=== PATIENT | female | born 1980 | race Caucasian/White ===

== ENCOUNTER 2020-12-04 12:56 | Outpatient (CLI) | payer BC, SELFPAY ==
[2020-12-07 04:39] LABS: FSH 9.7 mIU/mL (***); LH 12.8 mIU/mL (***); Progesterone 0.4 ng/mL (***)
[2020-12-09 07:18] LABS: Testosterone Total 44 ng/dL (2-45)
== END 2020-12-04 12:57 | disposition home or self-care (01) ==
LOC: ANHBWCLAB 12:58
PROVIDERS: PCP Family Medicine; Visit Provider Obstetrics & Gynecology
DX: L68.9 Hypertrichosis, unspecified (principal)
CPT/HCPCS: 36415; 83001; 83002; 84144; 84403

== ENCOUNTER 2022-08-13 08:13 | Outpatient (CLI) | payer BC, SELFPAY ==
--- NOTE | 2022-09-03 15:28 | WPDSLEEPSTUD ---
Sleep Study Date of Study: 08/13/22 Ordering Provider: MARQUEZ Morrow Interpreting Physician: Bindu Valentino DO Sleep Study Type: Split Polysomnogram Height: 1.63 m Weight: 102.058 kg Body Mass Index: 38.6 Neck Circumference (inches): 16 [place]: 7 Reason for Sleep Study Unrefreshing sleep, nocturnal gasping Sleep History The patient is a 42 year old female with anxiety and seasonal allergies that had sleep study ordered pulmonary group for evaluation sleep apnea. The patient works as an attorney at law. The patient rarely awakens from sleep short of breath. She rarely awakens at night with heartburn, belching or cough. She constantly snores loudly enough that others complain. She frequently has trouble sleeping when she has a cold. She occasionally wakes up gasping for air throughout the night. She rarely has breathing problems at night observed by herself or others. She denies sweating excessively at night. She occasionally has heart palpitations or irregular heartbeats during the night. She occasionally falls asleep during the day but never while driving. She denies sleep paralysis, cataplexy and hypnagogic / hypnopompic hallucinations. She rarely has trouble at school or work due to sleepiness. She denies feeling afraid of going to sleep. She denies having nightmares. She rarely remembers her dreams. She occasionally has thoughts racing through her mind. She rarely feels sad or depressed. She occasionally has anxiety. She frequently has muscular tension. She rarely notices parts of her body jerk. She rarely kicks during the night. She denies having crawling and aching feelings in her legs and denies having leg pain during the night. She occasionally grinds her teeth during sleep but rarely awakens with jaw pain in the morning. She is rarely bothered by pain during the day and never awakened by pain during the night. She rarely wakes up feeling stiff in the morning. She rarely wakes up with sore or achy muscles. She rarely wakes up with pain in the neck, spine or other joints. She goes to bed at 10:30 p.m. on weekdays and at midnight on the weekends. It takes her 10-25 minutes to fall asleep. She wakes up 2-3 times throughout the night to use the restroom and adjust. She is able to fall back asleep within 5 minutes. She wakes up at 6:00 a.m. on weekdays and at 7:30 a.m. on the weekends. She typically gets 5-7 hours of sleep per night. She will stay in bed for 30 minutes after waking up in the morning. She currently lives with her and 2 children. She does not consume any caffeinated beverages within 2 hours of bedtime. She does not engage in physical exercise before bedtime. She will read and watch television before falling asleep. She will occasionally take naps in the afternoon or the evening and they are refreshing. She consumes 4-5 caffeinated beverages per day. She has 1-2 alcoholic beverages per month. She denies tobacco and recreational drug use. [facility] Past Medical History Medical History Generalized anxiety disorder Herpes zoster High cholesterol Mixed hyperlipidemia Prehypertension Radiculopathy, lumbar region Specimen satisfactory for evaluation but limited by absence of endocervical or transformation zone component from patient with cervix Surgical History Surgical History H/O LEEP Previous section x 2 Family History Family History Father Family history of migraine headaches Hypertension Social History Social History Smoking status: Never smoker Second hand tobacco smoke exposure: No Alcohol intake: current Lack of Transportation: No Lack of Food: Sometimes True Current Housing: I Have Housing Concerned About Future Hous
[2022-09-03 15:53] VITALS: BMI 38.6
--- NOTE | 2022-09-05 11:00 | WPDSLEEPSTUD ---
Sleep Study Ordering Provider: Cynthia Carbajal PAC Interpreting Physician: Marcie Stephenson MD [facility] Past Medical History Medical History Generalized anxiety disorder Herpes zoster High cholesterol Mixed hyperlipidemia Prehypertension Radiculopathy, lumbar region Specimen satisfactory for evaluation but limited by absence of endocervical or transformation zone component from patient with cervix Surgical History Surgical History H/O LEEP Previous section x 2 Family History Family History Father Family history of migraine headaches Hypertension Social History Social History Smoking status: Never smoker Second hand tobacco smoke exposure: No Alcohol intake: current Lack of Transportation: No Lack of Food: Sometimes True Current Housing: I Have Housing Concerned About Future Housing: No Difficulty Paying Gas/Electric Bills: No Difficulty Paying for Meds: No Currently Unemployed: No Education: Master's Degree or Higher Difficulty w/ Childcare or Family Care: No Medications Home Medications Medication Instructions Recorded Confirmed Type metoprolol succinate 25 mg See Rx Instructions .Route 07/11/21 08/26/22 Rx tablet,extended release 24 hr .COMPLEX #90 tabs escitalopram oxalate 20 mg tablet 20 mg PO DAILY #90 tabs 08/07/21 08/26/22 Rx (Lexapro) cetirizine 10 mg tablet (Zyrtec) 10 mg PO DAILY PRN 09/17/21 08/26/22 History alprazolam 0.25 mg tablet (Xanax) 0.25 mg PO TID PRN anxiety #30 tabs 02/20/22 08/26/22 Rx bupropion HCl 300 mg 24 hr tablet, 300 mg PO QAM #90 tabs 08/27/22 Rx extended release (Wellbutrin XL) CPAP #1 ea 09/05/22 Rx
[2022-09-05 11:17] VITALS: BMI 38.6
== END 2022-08-14 07:24 | disposition home or self-care (01) ==
LOC: ANHCSM 08:13
PROVIDERS: PCP Family Medicine; Visit Provider Physician Assistant
DX: G47.33 Obstructive sleep apnea (adult) (pediatric) (principal); E78.5 Hyperlipidemia, unspecified
CPT/HCPCS: 95811

== ENCOUNTER 2023-10-24 00:24 | Day surgery (SDC) | payer BC, SELFPAY ==
[2023-10-01 09:49] VITALS: BMI 36.9
[2023-10-24 07:48] VITALS: BP 138/94; PULSE 90; RESP 20; TEMP 36.2; O2SAT 100
[2023-10-24] MEDS: LACTATED RINGERS 1,000 ML 150 ML IV CONT (07:56)
--- NOTE | 2023-10-24 09:00 | WPDANESEPPF ---
Anes - Initial Pre Proc Eval Procedure: Operation Date: 10/24/23 09:00 Proposed Procedures p Screening Colonoscopy - Justin Ma MD Date/Time: 10/24/23 09:00 Surgeon: Justin Ma MD Pre Op Diagnosis: neoplasm screening Patient Data Age: 43 Gender: F Height: 1.63 m Weight: 96.7 kg Last Vital Signs Temp 97.1 F L 10/24/23 07:48 Pulse 90 10/24/23 07:48 Resp 20 10/24/23 07:48 BP 138/94 H 10/24/23 07:48 Pulse Ox 100 10/24/23 07:48 O2 Del Method Room Air 10/24/23 07:48 Allergies Allergy/AdvReac Type Severity Reaction Status Date / Time banana Allergy Unknown RASH,HIVES Verified 10/01/23 09:37 melon Allergy Unknown RASH,HIVES Verified 10/01/23 09:37 ondansetron Allergy Unknown Hives Verified 10/01/23 09:37 Home Medications Medication Instructions Recorded Confirmed Type cetirizine 10 mg tablet (Zyrtec) 10 mg PO DAILY PRN Allergy Symptoms 09/17/21 10/24/23 History alprazolam 0.25 mg tablet (Xanax) 0.25 mg PO TID PRN anxiety #30 tabs 02/20/22 10/24/23 Rx bupropion HCl 300 mg 24 hr tablet, 300 mg PO QAM #90 tabs 08/27/22 10/24/23 Rx extended release (Wellbutrin XL) escitalopram oxalate 20 mg tablet 20 mg PO DAILY #90 tabs 11/29/22 10/24/23 Rx (Lexapro) metoprolol succinate 25 mg See Rx Instructions .Route 02/28/23 10/24/23 Rx tablet,extended release 24 hr .COMPLEX #90 tabs tirzepatide (weight loss) 2.5 2.5 mg (0.5 mL) subcut WEEKLY 4 06/25/23 10/24/23 Rx mg/0.5 mL subcutaneous pen weeks #6 mL injector (Zepbound) Patient hx anesthesia problems: none Family hx anesthesia problems: none Results Review: All pre-operative results and documents have been reviewed as part of the pre-operative evaluation. [facility] Past Medical History Medical History Generalized anxiety disorder Herpes zoster High cholesterol Mixed hyperlipidemia Prehypertension Radiculopathy, lumbar region Specimen satisfactory for evaluation but limited by absence of endocervical or transformation zone component from patient with cervix Surgical History Surgical History H/O LEEP (~09/2007) Previous section x 2 Family History Family History Father Family history of migraine headaches Hypertension H/O heart bypass surgery Social History Social History Smoking status: Never smoker Second hand tobacco smoke exposure: No Alcohol intake: current Drinks per week: 1 Substance use: never Substance use type: does not use Lack of Transportation: No Lack of Food: Sometimes True Current Housing: I Have Housing Concerned About Future Housing: No Difficulty Paying Gas/Electric Bills: No Difficulty Paying for Meds: No Currently Unemployed: No Education: Master's Degree or Higher Difficulty w/ Childcare or Family Care: No Living arrangements: with family Occupation/Education: occupation Gender identity (if verbalized by the patient): Female Sexual Orientation (if Verbalized by the Patient): Straight or Heterosexual Spiritual care concerns: No Anes - Eval Final PreProcedure Day of Procedure 10/24/23 09:00 Patient weight: obese Heart: regular rate and rhythm Lungs: clear to auscultation Airway: Mallampati scale class II Neurological: alert and oriented Last oral intake: >/= 8 hours ASA classification: II Emergent: no Anesthetic plan: proceed Anesthesia type and monitoring: general GIVS and standard monitoring Results Review: All pre-operative results and documents have been reviewed as part of the pre-operative evaluation. Informed Consent: The patient's anesthetic plan and its attendant risks and benefits were discussed with the patient/family/POA. Questions were solicited and answers provided
--- NOTE | 2023-10-24 09:00 | PM.HPGS ---
History of Present Illness History of Present Illness Consent: Risks, benefits, and alternatives have been discussed and questions answered. Patient agrees to proceed with procedure. Chief complaint: neoplasm screening Narrative: Devorah Pate is a 43 year old female here for first screening colonoscopy Review of Systems Review of Systems: All systems reviewed & are unremarkable except as noted in HPI and below PMFSH Past Medical History Medical History Generalized anxiety disorder Herpes zoster High cholesterol Mixed hyperlipidemia Prehypertension Radiculopathy, lumbar region Specimen satisfactory for evaluation but limited by absence of endocervical or transformation zone component from patient with cervix Surgical History Surgical History H/O LEEP (~09/2007) Previous section x 2 Family History Family History Father Family history of migraine headaches Hypertension H/O heart bypass surgery Social History Social History Smoking status: Never smoker Second hand tobacco smoke exposure: No Alcohol intake: current Drinks per week: 1 Substance use: never Substance use type: does not use Lack of Transportation: No Lack of Food: Sometimes True Current Housing: I Have Housing Concerned About Future Housing: No Difficulty Paying Gas/Electric Bills: No Difficulty Paying for Meds: No Currently Unemployed: No Education: Master's Degree or Higher Difficulty w/ Childcare or Family Care: No Living arrangements: with family Occupation/Education: occupation Gender identity (if verbalized by the patient): Female Sexual Orientation (if Verbalized by the Patient): Straight or Heterosexual Spiritual care concerns: No Meds Home Medications and Allergies Home Medications Medication Instructions Recorded Confirmed Type cetirizine 10 mg tablet (Zyrtec) 10 mg PO DAILY PRN Allergy Symptoms 09/17/21 10/24/23 History alprazolam 0.25 mg tablet (Xanax) 0.25 mg PO TID PRN anxiety #30 tabs 02/20/22 10/24/23 Rx bupropion HCl 300 mg 24 hr tablet, 300 mg PO QAM #90 tabs 08/27/22 10/24/23 Rx extended release (Wellbutrin XL) escitalopram oxalate 20 mg tablet 20 mg PO DAILY #90 tabs 11/29/22 10/24/23 Rx (Lexapro) metoprolol succinate 25 mg See Rx Instructions .Route 02/28/23 10/24/23 Rx tablet,extended release 24 hr .COMPLEX #90 tabs tirzepatide (weight loss) 2.5 2.5 mg (0.5 mL) subcut WEEKLY 4 06/25/23 10/24/23 Rx mg/0.5 mL subcutaneous pen weeks #6 mL injector (Zepbound) Allergies Allergy/AdvReac Type Severity Reaction Status Date / Time banana Allergy Unknown RASH,HIVES Verified 10/01/23 09:37 melon Allergy Unknown RASH,HIVES Verified 10/01/23 09:37 ondansetron Allergy Unknown Hives Verified 10/01/23 09:37 Vital Signs Vital Signs - 24 hr 10/24/23 07:48 Temperature 97.1 F L Pulse Rate 90 Respiratory Rate 20 Blood Pressure 138/94 H Pulse Oximetry 100 Oxygen Delivery Room Air Exam Const: General: comfortable and no acute distress HENMT: Face/Nose/Sinus: Normal nares present Eyes: General: appearance normal, both eyes and all related structures Neck: Neck: no JVD Resp: Auscultation: clear to auscultation bilaterally Cardio: Rate: regular rate Rhythm: regular rhythm GI: Inspection: non-distended GI Palp: Yes Soft to palpation Skin: General skin exam: normal color Neuro: General: gait normal Speech: normal speech Extrem: General: normal to inspection Psych: Mental Status: mental status grossly normal Assessment and Plan Assessment and plan (1) Colon cancer screening: Code(s): Z12.11 - Encounter for screening for malignant neoplasm of colon Status: Acute Assessment and Plan: col
[2023-10-24 09:19] LABS: BEDSIDEPREGUCG Negative
[2023-10-24 09:21] VITALS: BP 105/70; PULSE 80; RESP 15; O2SAT 97
[2023-10-24 09:31] VITALS: BP 116/80; PULSE 75; RESP 21; O2SAT 100
[2023-10-24 09:41] VITALS: BP 136/94; PULSE 73; RESP 13; O2SAT 100
== END 2023-10-24 09:47 | disposition home or self-care (01) ==
PROVIDERS: PCP Family Medicine; Referring Provider Family Medicine; Visit Provider Internal Medicine Gastroenterology
PROC: 0DJD8ZZ Inspection of Lower Intestinal Tract, Via Natural or Artificial Opening Endoscopic (ICD-10-PCS; CPT 45378; principal; 2023-10-24 09:00)
DX: Z12.11 Encounter for screening for malignant neoplasm of colon (principal); K64.4 Residual hemorrhoidal skin tags; E78.2 Mixed hyperlipidemia; F41.1 Generalized anxiety disorder; Z79.85 Long-term (current) use of injectable non-insulin antidiabetic drugs; E66.9 Obesity, unspecified; Z68.36 Body mass index [BMI] 36.0-36.9, adult
CPT/HCPCS: 45378; J2704; J7120